=== PATIENT | female | born 1965 | race Caucasian/White ===

== ENCOUNTER 2016-07-22 06:27 | Day surgery (SDC) | payer MEDICAID ==
[~2016-07-22] VITALS: Ht 149.9 cm; Wt 63.2 kg
[~2016-07-22 06:27] MED LIST: CALC-1062 PO; FOLI-74 PO; METF500T4 PO; SODIUM CHLORIDE 0.9% 1,000 ML IV ONE
[2016-07-22] MEDS ORDERED: SODIUM CHLORIDE 0.9% 1,000 ML IV ONE (06:44)
[2016-07-22 07:10] LABS: GLUCOSE COMMENT 1 Doctor Notified; GLUCOSE,POINT OF CARE 90 MG/DL (70-110)
[2016-07-22] MEDS ORDERED: MEPERIDINE-PF 25 MG/ML SYRINGE IVP PRN (08:15)
[2016-07-22] MEDS ORDERED: HYDROmorphone 2 MG/ML SYRINGE IVP PRN (08:15)
[2016-07-22] MEDS ORDERED: FentaNYL CITRATE-PF 100 MCG/2 ML VIAL IVP PRN (08:15)
[2016-07-22] MEDS ORDERED: PROPOFOL 1% 20 ML VIAL IVP ONE (12:00)
[2016-07-22] MEDS ORDERED: OXYGEN THERAPY IH SCH (20:00)
== END 2016-07-22 09:10 | disposition home or self-care (01) ==
LOC: SURGERY 06:27
PROVIDERS: ATTEND Specialist
DX: Z12.11 Encounter for screening for malignant neoplasm of colon (principal); K64.1 Second degree hemorrhoids; E11.9 Type 2 diabetes mellitus without complications; D64.9 Anemia, unspecified; I10 Essential (primary) hypertension; F32.9 Major depressive disorder, single episode, unspecified; B18.2 Chronic viral hepatitis C; M19.90 Unspecified osteoarthritis, unspecified site; M54.9 Dorsalgia, unspecified; Z86.11 Personal history of tuberculosis; Z80.0 Family history of malignant neoplasm of digestive organs
CPT/HCPCS: 45378; 82962; 93005; 99152; J2704; J7030

== ENCOUNTER 2016-10-05 05:42 | Emergency (ER) | payer MEDICAID ==
[~2016-10-05] VITALS: Ht 149.9 cm; Wt 64.5 kg
[~2016-10-05 05:42] MED LIST changes: -SODIUM CHLORIDE 0.9% 1,000 ML IV ONE
[2016-10-05 05:52] LABS: GLUCOSE,POINT OF CARE 133 MG/DL (70-110)
[2016-10-05 06:27] LABS: BASOPHILS # (AUTO) 0.03 K/uL (0.00-0.20); BASOPHILS % (AUTO) 0.6 % (0.0-2.0); EOSINOPHILS # (AUTO) 0.07 K/uL (0.00-0.70); EOSINOPHILS % (AUTO) 1.64 % (1.0-6.0); HEMOGLOBIN 9.6 g/dL (12.0-16.0); LYMPHOCYTES # (AUTO) 1.1 K/uL (1.0-4.8); LYMPHOCYTES % (AUTO) 25.2 % (22.0-44.0); MEAN CORPUSCULAR HEMOGLOBIN 25.1 pg (26.0-34.0); MEAN CORPUSCULAR HGB CONC 31.9 G/dL (31.0-37.0); MEAN CORPUSCULAR VOLUME 79 fL (80-100); MONOCYTES # (AUTO) 0.4 K/uL (0.1-1.0); MONOCYTES % (AUTO) 9.6 % (2.0-9.0); NEUTROPHILS # (AUTO) 2.9 K/uL (1.8-7.7); PLATELET COUNT (AUTO) 264 K/uL (150-450); RED BLOOD CELL COUNT(AUTO) 3.81 MIL/uL (4.00-5.20); WHITE BLOOD COUNT (AUTO) 4.5 K/uL (4.5-11.0)
[2016-10-05 06:36] LABS: RBC MORPHOLOGY COMMENT ABNORMAL RBC MORPH
[2016-10-05 06:37] LABS: ANION GAP 8 mmol/L (8-16); CALCIUM, TOTAL 9.1 mg/dL (8.8-10.5); CARBON DIOXIDE 28 mmol/L (22-29); CHLORIDE 102 mmol/L (98-107); CREATININE 0.69 mg/dL (0.60-1.30); GLOMERULAR FILTR. RATE CALC > 60 mL/min (>60); POTASSIUM 3.9 mmol/L (3.5-5.1); SODIUM SERUM 138 mmol/L (136-145); UREA NITROGEN, BLOOD 15 mg/dL (7-18)
[2016-10-05 06:43] LABS: ALANINE AMINOTRANSFERASE 46 U/L (12-78); ALBUMIN 3.2 g/dL (3.4-5.0); ASPARTATE AMINOTRANSFERASE 51 U/L (15-37); BILIRUBIN,TOTAL 0.3 mg/dL (0.1-1.0)
[2016-10-05 06:59] VITALS: BP 94/52
== END 2016-10-05 07:24 | disposition home or self-care (01) ==
LOC: EMS 05:44
DX: E11.9 Type 2 diabetes mellitus without complications (principal); R53.1 Weakness
CPT/HCPCS: 82962; 99284